=== PATIENT | female | born 1955 | race African-American/Black ===

== ENCOUNTER 2018-06-29 06:54 | Emergency (ER) | payer MEDICARE, OTHER ==
[~2018-06-29] VITALS: Ht 170.2 cm; Wt 94.3 kg
[~2018-06-29 06:54] MED LIST: CEPH-264 PO; CYCL-331 PO; DIAZ5TAB4 PO; DULO30CA2 PO; DULO60CA6 PO; FLUT12AE IH; MELO15TA23 PO; OXYC10TA PO; SIMV40TA3 PO; TRAZ-86 PO
[2018-06-29 07:28] LABS: BASO # 0.1 x10^3/uL (0.0-0.2); BASO % 2 % (0-3); EOS # 0.1 x10^3/uL (0.0-0.7); EOS % 2 % (0-3); HEMATOCRIT 39.5 % (36.0-47.0); LYMPH # 2.7 x10^3/uL (1.0-4.8); LYMPH % 41 % (24-48); MEAN CORPUSCULAR HEMOGLOBIN 31 pg (25-35); MEAN CORPUSCULAR HGB CONC 33 g/dL (31-37); MEAN CORPUSCULAR VOLUME 94 fL (79-100); MONO # 0.6 x10^3/uL (0.0-1.1); MONO % 10 % (0-9); NEUT % 46 % (31-73); PLATELET COUNT 356 x10^3/uL (140-400); RED BLOOD COUNT 4.22 x10^6/uL (3.50-5.40); RED CELL DISTRIBUTION WIDTH 13.7 % (11.5-14.5); WHITE BLOOD COUNT 6.5 x10^3/uL (4.0-11.0)
[2018-06-29] MEDS ORDERED: LORazepam 2 MG/ML VIAL IV ONE (07:45)
[2018-06-29 07:59] VITALS: BP 140/85
--- NOTE | 2018-06-29 08:10 | RAD ---
CT HEAD INDICATION: Altered mental status, HEADACHE COMPARISON: 11/14/2015 Exposure: One or more of the following individualized dose reduction techniques were utilized for this examination: 1. Automated exposure control 2. Adjustment of the mA and/or kV according to patient size 3. Use of iterative reconstruction technique TECHNIQUE: 5 mm contiguous axial images were obtained from the skull base to the vertex in both bone and soft tissue algorithm. FINDINGS: No abnormal attenuation within the brain parenchyma. No evidence of acute intracranial hemorrhage. No extra-axial fluid collections. No mass effect or midline shift. Ventricular size is appropriate. Basal cisterns are patent. No fractures identified.Heránndez-white differentiation is preserved.Globes and orbits are within normal limits. Paranasal sinuses and mastoid air cells are clear. IMPRESSION: No acute intracranial findings. Electronically signed by: Nolan Sky MD (06/29/2018 8:06 AM) [place] [id number]
[2018-06-29 08:21] LABS: ALBUMIN 3.5 g/dL (3.4-5.0); CALCIUM 8.5 mg/dL (8.5-10.1); CREATININE 0.8 mg/dL (0.6-1.0); GFR 87.9; MAGNESIUM 2.5 mg/dL (1.8-2.4); TOTAL BILIRUBIN 0.3 mg/dL (0.2-1.0); TOTAL PROTEIN 7.1 g/dL (6.4-8.2)
--- NOTE | 2018-06-29 08:27 | RAD ---
PORTABLE CHEST 1V Clinical indications: Altered mental status COMPARISON: November 14, 2015. Findings: Chronic scarring of the right lung base is seen. No acute lung infiltrate or pleural effusion or pulmonary edema or lung mass or pneumothorax is seen. The heart size, pulmonary vasculature, mediastinum and both aaron are unremarkable. Impression: No acute radiographic abnormality is seen. Electronically signed by: Sanjeev Fox MD (06/29/2018 8:23 AM) [facility]
[2018-06-29 09:27] LABS: BARBITURATES NEG (NEG); BENZODIAZEPINES POS (NEG); CANNABINOIDS NEG (NEG); COCAINE NEG (NEG); METHADONE NEG (NEG); OPIATES NEG (NEG); PHENCYCLIDINE NEG (NEG)
[2018-06-29 09:28] LABS: AMPHETAMINE/METHAMPHETAMINE NEG (NEG)
[2018-06-29 09:41] LABS: BILIRUBIN,URINE NEG (NEG); CLARITY,URINE CLEAR; COLOR,URINE YELLOW; GLUCOSE,URINE NEG (NEG); NITRITE,URINE NEG (NEG); UROBILINOGEN,URINE 0.2 mg/dL (0.2 mg/dL)
[2018-06-29 09:42] LABS: BACTERIA,URINE 0 /HPF (0-FEW); RBC,URINE 0 /HPF (0-2); SQUAMOUS EPITHELIAL CELL,UR OCC /LPF; WBC,URINE OCC /HPF (0-4)
[2018-06-29] MEDS ORDERED: KETOROLAC 30 MG/ML VIAL. IV ONE (09:45)
[2018-06-29] MEDS ORDERED: NAPR-683 PO (10:00)
--- NOTE | 2018-06-29 10:01 | PHYS DOC ---
Past History Past Medical History: Anxiety, Asthma, Depression, Other Past Surgical History: Cervical Fusion, Hip Replacement, Hysterectomy Smoking: Non-smoker Alcohol Use: None Drug Use: None Adult General Chief Complaint Chief Complaint: WEAKNESS/GENERALIZED HPI HPI Patient is a 63 year old female with history of sleep apnea on CPAP and sleep paralysis brought in by her family member because of 3 episodes of sleep paralysis this morning since 4 AM and generalized weakness and headache after episode of sleep paralysis. Patient states he has her eyes open but unable to talk or moves or doing anything during episodes of sleep paralysis. Patient denies chest pain, shortness of breath, nausea and vomiting, focal neuro deficit , blurred vision, missing her medication, using drugs or alcohol. Patient and her family are poor historian. Review of Systems Review of Systems Constitutional: Denies fever or chills [] Eyes: Denies change in visual acuity, redness, or eye pain [] HENT: Denies nasal congestion or sore throat [] Respiratory: Denies cough or shortness of breath [] Cardiovascular: No additional information not addressed in HPI [] GI: Denies abdominal pain, nausea, vomiting, bloody stools or diarrhea [] : Denies dysuria or hematuria [] Musculoskeletal: Denies back pain or joint pain [] Integument: Denies rash or skin lesions [] Neurologic: Reports headache, denies focal weakness or sensory changes [] Endocrine: Denies polyuria or polydipsia [] All other systems were reviewed and found to be within normal limits, except as documented in this note. Current Medications Current Medications Current Medications Medications (Trade) Dose Ordered Sig/Ryley Start Time Stop Time Status Last Admin Dose Admin Ketorolac Tromethamine (Toradol 30mg Vial) 30 mg 1X ONCE 06/29/18 09:45 06/29/18 09:46 DC Lorazepam (Ativan) 1 mg 1X ONCE 06/29/18 07:45 06/29/18 07:47 DC 06/29/18 07:34 1 MG Allergies Allergies Allergies Coded Allergies Type Severity Reaction Last Updated Verified No Known Drug Allergies 11/22/13 No Physical Exam Physical Exam Constitutional: Well nourished, mild distress, non-toxic appearance. [] HENT: Normocephalic, atraumatic, bilateral external ears normal, oropharynx moist, no oral exudates, nose normal. [] Eyes: PERRLA, EOMI, conjunctiva normal, no discharge. [] Neck: Normal range of motion, no tenderness, supple, no stridor. [] Cardiovascular:Heart rate regular rhythm, no murmur [] Lungs & Thorax: Bilateral breath sounds clear to auscultation [] Abdomen: Bowel sounds normal, soft, no tenderness, no masses, no pulsatile masses. [] Skin: Warm, dry, no erythema, no rash. [] Back: No tenderness, no CVA tenderness. [] Extremities: No tenderness, no cyanosis, no clubbing, ROM intact, no edema. [] Neurologic: Alert and oriented X 3, normal motor function, normal sensory function, no focal deficits noted. [] Psychologic: Affect anxious, judgement normal, mood normal. [] Current Patient Data Vital Signs Vital Signs Date Time Temp Pulse Resp B/P (MAP) Pulse Ox O2 Delivery O2 Flow Rate FiO2 06/29/18 07:59 60 16 140/85 (103) 99 Room Air 06/29/18 06:56 97.7 Lab Results Laboratory Tests Test 06/29/18 07:05 06/29/18 07:40 06/29/18 08:38 White Blood Count 6.5 x10^3/uL (4.0-11.0) Red Blood Count 4.22 x10^6/uL (3.50-5.40) Hemoglobin 13.0 g/dL (12.0-15.5) Hematocrit 39.5 % (36.0-47.0) Mean Corpuscular Volume 94 fL (79-100) Mean Corpuscular Hemoglobin 31 pg (25-35) Mean Corpuscular Hemoglobin Concent 33 g/dL (31-37) Red Cell Distribution Width 13.7 % (11.5-14.5) Platelet Count 356 x10^3/uL (140-400) Neutrophils (%) (Auto) 46 % (31-73) Lymphocytes (%) (Auto) 41 % (24-48) Monocytes (%) (Auto) 10 % (0-9) H Eosinophils (%) (Auto) 2 % (0-3) Basophils (%) (Auto) 2 % (0-3) Neutrophils # (Auto) 3.0 x10^3uL (1.8-7.7) Lymphocytes # (Auto) 2.7 x10^3/uL (1.0-4.8) Monocytes # (Auto) 0.6 x10^3/uL (0.0-1.1) Eosinophils # (Auto) 0.1 x10^3/uL (0.0-0.7) Basophils # (Auto) 0.1 x10^3/uL (0.0-0.2) Troponin I Quantitative < 0.017 ng/mL (0-0.055) Prothrombin Time 9.4 SEC (9.4-11.4) Prothrombin Time INR 0.9 (0.9-1.1) Sodium Level 143 mmol/L (136-145) Potassium Level 4.0 mmol/L (3.5-5.1) Chloride Level 106 mmol/L (98-107) Carbon Dioxide Level 28 mmol/L (21-32) Anion Gap 9 (6-14) Blood Urea Nitrogen 8 mg/dL (7-20) Creatinine 0.8 mg/dL (0.6-1.0) Estimated GFR (Cockcroft-Gault) 87.9 BUN/Creatinine Ratio 10 (6-20) Glucose Level 109 mg/dL (70-99) H Lactic Acid Level 1.1 mmol/L (0.4-2.0) Calcium Level 8.5 mg/dL (8.5-10.1) Magnesium Level 2.5 mg/dL (1.8-2.4) H Total Bilirubin 0.3 mg/dL (0.2-1.0) Aspartate Amino Transferase (AST) 13 U/L (15-37) L Alanine Aminotransferase (ALT) 24 U/L (14-59) Alkaline Phosphatase 95 U/L (46-116) Creatine Kinase 70 U/L (26-192) CK-Bte-A-Type Natriuretic Peptide 33 pg/mL (0-124) Total Protein 7.1 g/dL (6.4-8.2) Albumin 3.5 g/dL (3.4-5.0) Albumin/Globulin Ratio 1.0 (1.0-1.7) Urine Collection Type Unknown Urine Color Yellow Urine Clarity Clear Urine pH 7.5 Urine Specific [place] 1.015 Urine Protein Neg (NEG-TRACE) Urine Glucose (UA) Neg mg/dL (NEG) Urine Ketones (Stick) Neg mg/dL (NEG) Urine Blood Neg (NEG) Urine Nitrite Neg (NEG) Urine Bilirubin Neg (NEG) Urine Urobilinogen Dipstick 0.2 mg/dL (0.2 mg/dL) Urine Leukocyte Esterase Small (NEG) Urine RBC 0 /HPF (0-2) Urine WBC Occ /HPF (0-4) Urine Squamous Epithelial Cells Occ /LPF Urine Bacteria 0 /HPF (0-FEW) Urine Opiates Screen Neg (NEG) Urine Methadone Screen Neg (NEG) Urine Barbiturates Neg (NEG) Urine Phencyclidine Screen Neg (NEG) Urine Amphetamine/Methamphetamine Neg (NEG) Urine Benzodiazepines Screen Pos (NEG) Urine Cocaine Screen Neg (NEG) Urine Cannabinoids Screen Neg (NEG) Urine Ethyl Alcohol Neg (NEG) EKG EKG KG interpreted by me. EKG at 0 726 showed normal sinus rhythm at rate of 67, normal intervals and axis, no acute ST and T-wave abnormalities. Radiology/Procedures Radiology/Procedures [][address] [address] IMAGING REPORT Signed PATIENT: SUSAN MCGOVERN ACCOUNT: [id number] : 1955 LOCATION: ER AGE: 63 SEX: F EXAM STATUS: REG ER ORD. PHYSICIAN: APRIL LEHMAN MD REASON: ALOC PROCEDURE: PORTABLE CHEST 1V PORTABLE CHEST 1V Clinical indications: Altered mental status COMPARISON: November 14, 2015. Findings: Chronic scarring of the right lung base is seen. No acute lung infiltrate or pleural effusion or pulmonary edema or lung mass or pneumothorax is seen. The heart size, pulmonary vasculature, mediastinum and both aaron are unremarkable. Impression: No acute radiographic abnormality is seen. Electronically signed by: Otilia Fox MD (06/29/2018 8:23 AM) [facility] DICTATED AND SIGNED BY: OTILIA FOX MD DATE: 06/29/18820 CC: APRIL LEHMAN MD; ELVIN SAAB ~ [address] [address] IMAGING REPORT Signed PATIENT: SUSAN MCGOVERN ACCOUNT: [id number] : 1955 LOCATION: ER AGE: 63 SEX: F EXAM STATUS: REG ER ORD. PHYSICIAN: APRIL LEHMAN MD REASON: ALOC PROCEDURE: CT HEAD WO CONTRAST CT HEAD INDICATION: Altered mental status, HEADACHE COMPARISON: 11/14/2015 Exposure: One or more of the following individualized dose reduction techniques were utilized for this examination: 1. Automated exposure control 2. Adjustment of the mA and/or kV according to patient size 3. Use of iterative reconstruction technique TECHNIQUE: 5 mm contiguous axial images were obtained from the skull base to the vertex in both bone and soft tissue algorithm. FINDINGS: No abnormal attenuation within the brain parenchyma. No evidence of acute intracranial hemorrhage. No extra-axial fluid collections. No mass effect or midline shift. Ventricular size is appropriate. Basal cisterns are patent. No fractures identified.Hernández-white differentiation is preserved.Globes and orbits are within normal limits. Paranasal sinuses and mastoid air cells are clear. IMPRESSION: No acute intracranial findings. Electronically signed by: Nolan Sky MD (06/29/2018 8:06 AM) [place] [id number] DICTATED AND SIGNED BY: NOLAN SKY MD DATE: 06/29/18801 CC: APRIL LEHMAN MD; ELVIN SAAB ~ Course & Med Decision Making Course & Med Decision Making Pertinent Labs and Imaging studies reviewed. (See chart for details) Evaluation of patient in ER showed 63-year-old poor historian female patient brought in by family member because of headache and generalized weakness after 3 episodes of sleep paralysis with unable to talk and moving her extremity. Patient had this problem for a long time and usually gets headache and weakness after episodes. Patient had unremarkable physical exam except for mild anxiety . Labs and EKG and chest x-ray and CT of head was unremarkable. Patient felt better after treatment with Ativan and ambulated without problem and felt comfortable to go home. Dragon Disclaimer Dragon Disclaimer This electronic medical record was generated, in whole or in part, using a voice recognition dictation system. Departure Departure: Impression: Primary Impression: Headache Additional Impressions: Sleep paralysis Generalized weakness Anxiety about blushing Hypermagnesemia Disposition: HOME, SELF-CARE (at 0957) Condition: IMPROVED Referrals: ELVIN SAAB (PCP) Patient Instructions: General Headache Without Cause, [id number], Sleep Apnea Additional Instructions: Drink plenty of liquids Follow-up with your primary care physician in 3-5 days Return to ER if not getting better Continue home medication Scripts Naproxen (NAPROSYN) 500 Mg Tablet 500 MG PO BID for pain, #14 TAB Prov: APRIL LEHMAN MD 06/29/18 Problem Qualifiers APRIL LEHMAN MD Jun 29, 2018 10:01
--- NOTE | 2018-06-29 10:55 | EKG ---
[address] [address] Test Date: 2018-06-29 Test Time: 07:26:08 Pat Name: SUSAN MCGOVERN Department: Room: Gender: F [employer] Profit Job Titles: : 1955 Requested By: APRIL LEHMAN Order Number: [id number] Reading MD: Ritesh Prince Measurements Intervals [place] Rate: 67 P: 49 RI: 182 QRS: 16 QRSD: 70 T: 21 QT: 408 QTc: 434 Interpretive Statements SINUS RHYTHM Electronically Signed On 07-05-2018 10:04:06 [employer]PLICATIONS ANALYST by Ritesh Prince
== END 2018-06-29 10:07 | disposition home or self-care (01) ==
LOC: ER 06:54
DX: G47.53 Recurrent isolated sleep paralysis (principal); R51 Headache; R53.1 Weakness; E83.41 Hypermagnesemia; F41.8 Other specified anxiety disorders; F32.9 Major depressive disorder, single episode, unspecified; J45.909 Unspecified asthma, uncomplicated; R41.82 Altered mental status, unspecified
CPT/HCPCS: 36415; 70450; 71045; 80053; 80307; 81001; 82550; 83605; 83735; 83880; 84484; 85025; 85610; 87086; 93005; 96374; 99284; J2060

== ENCOUNTER → 2018-10-26 | Outpatient (CLI) | payer MEDICARE, OTHER ==
[~2018-10-26] MED LIST changes: +NAPR-683 PO
--- NOTE | 2018-10-26 14:11 | RAD ---
Examination: HIP RIGHT 2V WITH PELVIS History: RIGHT HIP PAIN AND PELVIC PAIN Comparison/Correlation: None Findings: Frontal view pelvis, frontal view of the right hip, and frog-leg lateral view right hip were obtained. Left hip joint prosthesis is mostly visualized except at the distal femoral stem region. Subchondral sclerosis of the right femoral head is present. No fracture or bony destruction. Soft tissues are unremarkable. Right hip joint space is unremarkable. Degenerative changes of the sacroiliac joints is mild. Impression: No acute process. Subchondral sclerosis of the right femoral head. Findings raise question of previous episodes of avascular necrosis. Right femoral head contour and right hip joint space are within normal limits. Electronically signed by: Maykel Rubio MD (10/26/2018 2:08 PM) [facility]
--- NOTE | 2018-10-26 14:42 | RAD ---
3 view study of both shoulders Clinical indications: Bilateral shoulder pain Left shoulder: No acute fracture or dislocation or lytic process or AC joint separation is seen. There is mild degenerative spurring without joint space narrowing of the glenohumeral joint. There is mild spurring of the left AC joint. Right shoulder: No acute fracture or dislocation or lytic process or AC joint separation is seen. There is moderate joint space narrowing and mild spurring of the right glenohumeral joint. There is mild degenerative spurring of the right AC joint. IMPRESSION: No acute fracture. There is mild primary degenerative osteoarthritis and spurring of the left AC joint and left glenohumeral joint. There is moderate primary degenerative osteoarthritis of the right glenoid humeral joint and mild primary degenerative osteoarthritis of the right AC joint. Electronically signed by: Sanjeev Fox MD (10/26/2018 2:40 PM) [facility]
== END | disposition home or self-care (01) ==
LOC: RAD 10:32
PROVIDERS: ATTEND Orthopaedic Surgery Sports Medicine
DX: M19.011 Primary osteoarthritis, right shoulder (principal); M19.012 Primary osteoarthritis, left shoulder; M25.551 Pain in right hip; M89.8X8 Other specified disorders of bone, other site; Z96.642 Presence of left artificial hip joint
CPT/HCPCS: 73030; 73502

== ENCOUNTER 2019-12-04 11:04 | Observation (INO) | payer MEDICARE, OTHER ==
[~2019-12-04] VITALS: Ht 170.2 cm; Wt 84.1 kg
[~2019-12-04 11:04] MED LIST changes: +SIMV40TA18 PO; -SIMV40TA3 PO; +TRAZ-125 PO; -TRAZ-86 PO
[2019-12-04] MEDS ORDERED: IV NORMAL SALINE 1,000ML 1,000 ML IV ONE (11:30)
[2019-12-04 11:42] LABS: BASO # 0.1 x10^3/uL (0.0-0.2); BASO % 1 % (0-3); EOS # 0.1 x10^3/uL (0.0-0.7); EOS % 1 % (0-3); HEMATOCRIT 44.3 % (36.0-47.0); HEMOGLOBIN 14.3 g/dL (12.0-15.5); LYMPH # 2.3 x10^3/uL (1.0-4.8); LYMPH % 47 % (24-48); MEAN CORPUSCULAR HEMOGLOBIN 32 pg (25-35); MEAN CORPUSCULAR HGB CONC 32 g/dL (31-37); MEAN CORPUSCULAR VOLUME 99 fL (79-100); MONO # 0.6 x10^3/uL (0.0-1.1); MONO % 12 % (0-9); NEUT # 1.9 x10^3uL (1.8-7.7); NEUT % 38 % (31-73); PLATELET COUNT 390 x10^3/uL (140-400); RED BLOOD COUNT 4.48 x10^6/uL (3.50-5.40); RED CELL DISTRIBUTION WIDTH 14.6 % (11.5-14.5); WHITE BLOOD COUNT 4.9 x10^3/uL (4.0-11.0)
[2019-12-04 11:45] LABS: CALCIUM 9.2 mg/dL (8.5-10.1); GFR 67.8
[2019-12-04 11:51] LABS: ACETAMIN 2.8 mcg/mL (10-30); ETHANOL < 10 mg/dL (0-10); SALIC < 2.8 mg/dL (2.8-20.0)
[2019-12-04 11:57] LABS: ALBUMIN 4.1 g/dL (3.4-5.0); MAGNESIUM 2.1 mg/dL (1.8-2.4); TOTAL BILIRUBIN 0.3 mg/dL (0.2-1.0); TOTAL PROTEIN 8.1 g/dL (6.4-8.2)
[2019-12-04] MEDS ORDERED: POTASSIUM CHLORIDE 10 MEQ TABLET.ER. PO ONE (12:45)
[2019-12-04 13:32] LABS: AMPHETAMINE/METHAMPHETAMINE NEG (NEG); BARBITURATES NEG (NEG); BENZODIAZEPINES NEG (NEG); CANNABINOIDS POS (NEG); COCAINE NEG (NEG); METHADONE NEG (NEG); OPIATES NEG (NEG); PHENCYCLIDINE NEG (NEG)
[2019-12-04 13:42] LABS: BILIRUBIN,URINE NEG (NEG); CLARITY,URINE CLOUDY; COLOR,URINE YELLOW; GLUCOSE,URINE NEG (NEG); NITRITE,URINE NEG (NEG); UROBILINOGEN,URINE 0.2 mg/dL (0.2 mg/dL)
[2019-12-04 13:43] LABS: BACTERIA,URINE MANY /HPF (0-FEW); SQUAMOUS EPITHELIAL CELL,UR OCC /LPF
--- NOTE | 2019-12-04 14:21 | PHYS DOC ---
Past History Past Medical History: Anxiety, Asthma, Bipolar, Depression Past Surgical History: Hip Replacement, Hysterectomy Additional Past Surgical Histo: ankle Smoking: Non-smoker Alcohol Use: None Drug Use: None Social History Narrative: MICAH cheng General Adult EDM: Chief Complaint: ANXIETY/PANIC ATTACK HPI: HPI: Patient is a 64-year-old female who presented to ER today complaint of severe anxiety attack, feeling very anxious and scared. Patient also complained of headache and having trouble breathing, feeling dizzy. Patient was screaming and crying, very tearful upon arrival. Patient denies suicidal ideation. Patient denies any chest pain, no abdominal pain. Patient states he has a history of anxiety, depression, bipolar disorder, patient is on Cymbalta, but she ran out of medication for several weeks. Patient lives on [facility] with her family. Review of Systems: Review of Systems: Constitutional: Denies fever or chills Eyes: Denies change in visual acuity HENT: Denies nasal congestion or sore throat Respiratory: Positive for trouble breathing Cardiovascular: Denies chest pain or edema GI: Denies abdominal pain, nausea, vomiting, bloody stools or diarrhea : Denies dysuria Musculoskeletal: Denies back pain or joint pain Integument: Denies rash Neurologic: Positive headache, dizziness Endocrine: Denies polyuria or polydipsia Lymphatic: Denies swollen glands Psychiatric: Positive for depression, anxiety, Heart Score: Risk Factors: Risk Factors: DM, Current or recent (<one month) smoker, HTN, HLP, family history of CAD, obesity. Risk Scores: Score 0 - 3: 2.5% MACE over next 6 weeks - Discharge Home Score 4 - 6: 20.3% MACE over next 6 weeks - Admit for Clinical Observation Score 7 - 10: 72.7% MACE over next 6 weeks - Early Invasive Strategies Current Medications: Current Meds: Current Medications Medications (Trade) Dose Ordered Sig/Ryley Start Time Stop Time Status Last Admin Dose Admin Duloxetine HCl (Cymbalta) 60 mg DAILY 12/05/19 09:00 12/04/19 14:15 60 MG Lorazepam (Ativan Inj) 2 mg 1X ONCE 12/04/19 11:45 12/04/19 11:46 DC 12/04/19 11:15 2 MG Potassium Chloride (Klor-Con) 40 meq 1X ONCE 12/04/19 12:45 12/04/19 12:54 DC 12/04/19 14:15 40 MEQ Sodium Chloride 1,000 ml @ 1,000 mls/hr 1X ONCE 12/04/19 11:30 12/04/19 12:29 DC 12/04/19 11:20 1,000 MLS/HR Allergies: Allergies: Allergies Coded Allergies Type Severity Reaction Last Updated Verified No Known Drug Allergies 11/22/13 No Physical Exam: PE: Constitutional: Well developed, well nourished, no acute distress, non-toxic appearance. [] HENT: Normocephalic, atraumatic, bilateral external ears normal, oropharynx moist, no oral exudates, nose normal. [] Eyes: PERRLA, EOMI, conjunctiva normal, no discharge. [] Neck: Normal range of motion, no tenderness, supple, no stridor. [] Cardiovascular:Heart rate regular rhythm, no murmur [] Lungs & Thorax: Bilateral breath sounds clear to auscultation [] Abdomen: Bowel sounds normal, soft, no tenderness, no masses, no pulsatile masses. [] Skin: Warm, dry, no erythema, no rash. [] Back: No tenderness, no CVA tenderness. [] Extremities: No tenderness, no cyanosis, no clubbing, ROM intact, no edema. [] Neurologic: Alert and oriented X 3, normal motor function, normal sensory function, no focal deficits noted. [] Psychologic: Affect normal, judgement normal, mood normal. [] Current Patient Data: Labs: Laboratory Tests Test 12/04/19 11:13 12/04/19 13:03 White Blood Count 4.9 x10^3/uL (4.0-11.0) Red Blood Count 4.48 x10^6/uL (3.50-5.40) Hemoglobin 14.3 g/dL (12.0-15.5) Hematocrit 44.3 % (36.0-47.0) Mean Corpuscular Volume 99 fL (79-100) Mean Corpuscular Hemoglobin 32 pg (25-35) Mean Corpuscular Hemoglobin Concent 32 g/dL (31-37) Red Cell Distribution Width 14.6 % (11.5-14.5) H Platelet Count 390 x10^3/uL (140-400) Neutrophils (%) (Auto) 38 % (31-73) Lymphocytes (%) (Auto) 47 % (24-48) Monocytes (%) (Auto) 12 % (0-9) H Eosinophils (%) (Auto) 1 % (0-3) Basophils (%) (Auto) 1 % (0-3) Neutrophils # (Auto) 1.9 x10^3uL (1.8-7.7) Lymphocytes # (Auto) 2.3 x10^3/uL (1.0-4.8) Monocytes # (Auto) 0.6 x10^3/uL (0.0-1.1) Eosinophils # (Auto) 0.1 x10^3/uL (0.0-0.7) Basophils # (Auto) 0.1 x10^3/uL (0.0-0.2) Sodium Level 142 mmol/L (136-145) Potassium Level 3.0 mmol/L (3.5-5.1) L Chloride Level 103 mmol/L (98-107) Carbon Dioxide Level 26 mmol/L (21-32) Anion Gap 13 (6-14) Blood Urea Nitrogen 4 mg/dL (7-20) L Creatinine 1.0 mg/dL (0.6-1.0) Estimated GFR (Cockcroft-Gault) 67.8 BUN/Creatinine Ratio 4 (6-20) L Glucose Level 137 mg/dL (70-99) H Calcium Level 9.2 mg/dL (8.5-10.1) Magnesium Level 2.1 mg/dL (1.8-2.4) Total Bilirubin 0.3 mg/dL (0.2-1.0) Aspartate Amino Transferase (AST) 14 U/L (15-37) L Alanine Aminotransferase (ALT) 19 U/L (14-59) Alkaline Phosphatase 93 U/L (46-116) Troponin I Quantitative < 0.017 ng/mL (0-0.055) UE-Yjo-X-Type Natriuretic Peptide 14 pg/mL (0-124) Total Protein 8.1 g/dL (6.4-8.2) Albumin 4.1 g/dL (3.4-5.0) Albumin/Globulin Ratio 1.0 (1.0-1.7) Salicylates Level < 2.8 mg/dL (2.8-20.0) L Salicylate Last Dose Date Unknown Salicylate Last Dose Time Unknown Acetaminophen Level 2.8 mcg/mL (10-30) L Acetaminophen Last Dose Date Unknown Acetaminophen Last Dose Time Unknown Ethyl Alcohol Level < 10 mg/dL (0-10) Urine Collection Type Unknown Urine Color Yellow Urine Clarity Cloudy Urine pH 6.0 Urine Specific [place] 1.015 Urine Protein Neg (NEG-TRACE) Urine Glucose (UA) Neg mg/dL (NEG) Urine Ketones (Stick) Neg mg/dL (NEG) Urine Blood Neg (NEG) Urine Nitrite Neg (NEG) Urine Bilirubin Neg (NEG) Urine Urobilinogen Dipstick 0.2 mg/dL (0.2 mg/dL) Urine Leukocyte Esterase Trace (NEG) Urine RBC 1-2 /HPF (0-2) Urine WBC 5-10 /HPF (0-4) Urine Squamous Epithelial Cells Occ /LPF Urine Bacteria Many /HPF (0-FEW) Urine Opiates Screen Neg (NEG) Urine Methadone Screen Neg (NEG) Urine Barbiturates Neg (NEG) Urine Phencyclidine Screen Neg (NEG) Urine Amphetamine/Methamphetamine Neg (NEG) Urine Benzodiazepines Screen Neg (NEG) Urine Cocaine Screen Neg (NEG) Urine Cannabinoids Screen Pos (NEG) Urine Ethyl Alcohol Neg (NEG) Vital Signs: Vital Signs Date Time Temp Pulse Resp B/P (MAP) Pulse Ox O2 Delivery O2 Flow Rate FiO2 12/04/19 11:04 128 60 126/86 (99) 100 Room Air EKG: EKG: [] Radiology/Procedures: Radiology/Procedures: [] Course & Med Decision Making: Course & Med Decision Making Pertinent Labs and Imaging studies reviewed. (See chart for details) Patient is a 64-year-old female who was brought here by family for evaluation of anxiety, patient has history of bipolar depression anxiety, she is out of her anxiety medication for several weeks. Patient is experiencing an anxiety attack, possibly drug withdrawal. Patient feels scared to go home. Patient will be admitted to the hospital for observation then. Dragon Disclaimer: Yuliaon Disclaimer: This electronic medical record was generated, in whole or in part, using a voice recognition dictation system. Departure Departure: Impression: Primary Impression: Anxiety Additional Impressions: Panic attack Drug withdrawal Disposition: ADMITTED INPATIENT Admitting Physician: Harjit Streeter Condition: IMPROVED Referrals: ELVIN SAAB (PCP) TAMELA FUENTES DO December 04, 2019 14:21
[2019-12-04] MEDS ORDERED: ALPRAZolam 0.25 MG TABLET PO ONE (14:45)
[2019-12-04 14:50] VITALS: BP 114/74
--- NOTE | 2019-12-04 15:09 | HP ---
ADMIT DATE: 12/04/2019 ATTENDING PHYSICIAN: Dr. Bautista. CHIEF COMPLAINT: Panic attack and crying spells. HISTORY OF PRESENT ILLNESS: This is a 64-year-old female with a known history of bipolar disorder and generalized anxiety. She has been out of her Cymbalta for 3 weeks now. She tried calling her primary care doctor's office and they were closed for the last month and a half because of the coronavirus pandemic. Today, she has got a lot of stress at home. She is crying, anxious, scared, vague symptoms of headache, trouble breathing, hyperventilating. The patient was screaming and crying in the ER, very tearful upon arrival. She denied any ideation of self-harm. She was given a dose of Cymbalta in the ED along with some other home meds. I was requested to admit her observation for management of her severe panic attack and anxiety. Her last dose of Cymbalta was 3 weeks ago. PAST MEDICAL HISTORY: Significant for bipolar disorder, generalized anxiety, anxiety, asthma. She has had a hysterectomy and a hip replacement. ALLERGIES: She has no known drug allergies. MEDICATIONS: Her current medicines include Cymbalta, lorazepam, potassium and sodium chloride. SOCIAL HISTORY: She is a nonsmoker, nondrinker. FAMILY HISTORY: Very complicated to get into, she could not give us much detail. She tells us that there are extenuating stress factors in her life personally as well as with family and friends. PHYSICAL EXAMINATION: GENERAL: When I saw her, this is a tearful female in no acute respiratory distress. INITIAL VITAL SIGNS: Showed a blood pressure of 126/86, pulse was 110 and regular, respiratory rate had been recorded 60 and it came down to about 32 by the time I saw her, oxygen saturation 100% on room air from hyperventilation. HEENT: Head is without trauma. Pupils are reactive. Sclerae nonicteric. Oropharynx clear. NECK: Supple, no bruits identified. LUNGS: Otherwise clear. CARDIOVASCULAR: Showed regular heart tones. No gallops, no murmurs. Peripheral pulses are palpable and full. ABDOMEN: Soft, scaphoid, nontender, no organomegaly. Bowel sounds are hypoactive. EXTREMITIES: No cyanosis. NEUROLOGIC: The patient is very tearful and anxious, but she was able to speak clearly. There are no focal deficits. SKIN: Warm and dry. PERTINENT LABORATORY STUDIES: Sodium 142, potassium 3.0 mEq per liter. Hemoglobin 14.3 g/dl, white count 4900. ASSESSMENT: 1. A 64-year-old female with acute panic attack. 2. She has been off of her antidepressant meds for a while. 3. History of bipolar disorder. 4. Generalized anxiety with many stressors. PLAN: 1. Observation status. 2. We should restart her Cymbalta. She got a dose in the ED already. 3. We will schedule Xanax. 4. hvac project manager to see. 5. The patient really needs psychiatric counseling. We will try to get that set up for her as an outpatient. RACHEL BAUTISTA MD DR: TOMAS/owen JOB#: [id number] / [id number]
[2019-12-04] MEDS ORDERED: NORT25CA PO (16:28)
[2019-12-04] MEDS ORDERED: ACET325T9 PO (16:28)
[2019-12-04 19:09] VITALS: BP 116/82
--- NOTE | 2019-12-04 19:20 | RAD ---
CT HEAD WO CONTRAST Clinical indications: Psychosis. Altered mental status. COMPARISON: June 29, 2018. Technique: Noncontrast axial cross sectional scanning of the head was performed. PQRS compliance Statement One or more of the following individualized dose reduction techniques were utilized for this study: 1. Automated exposure control 2. Adjustment of the mA and/or kV according to patient size 3. Use of iterative reconstruction technique Findings: No acute intracranial hemorrhage or midline shift or mass-effect or hydrocephalus or extra-axial fluid collection is seen. No focal hypodense area or sulci effacement is seen to indicate an acute infarct or edema radiographically. No skull fracture or pneumocephalus is seen. No opacification of the mastoid sinuses or the middle ear cavities or the paranasal sinuses is seen. The maxillary sinuses are not completely seen in this study. Impression: No acute intracranial abnormality is seen. Electronically signed by: Sanjeev Fox MD (12/04/2019 7:18 PM) [facility] [place]
[2019-12-04] MEDS: risperiDONE 0.5 MG TABLET. PO SCH (21:41)
[2019-12-04] MEDS: traZODone 50 MG TABLET. PO SCH (21:41)
[2019-12-04 22:00] VITALS: BP 120/80
--- NOTE | 2019-12-04 22:22 | PDOC ---
Exam Note: Mark Note: Please also refer to the separate dictated note~for this date of service dictated separately.~Patient seen individually. Discussed the patient with Nursing staff reviewed the chart.~Reviewed interim history and current functioning. Reviewed vital signs,~Labs/ Radiology~and current medications noted below. Continue current treatment with the changes noted in the dictated addendum note Assessment: Vital Signs/I&O: Vital Signs Date Time Temp Pulse Resp B/P (MAP) Pulse Ox O2 Delivery O2 Flow Rate FiO2 12/04/19 22:00 98.2 88 20 120/80 (93) 95 Room Air 12/04/19 13:39 2.0 Labs: Laboratory Tests Test 12/04/19 11:13 12/04/19 13:03 White Blood Count 4.9 x10^3/uL (4.0-11.0) Red Blood Count 4.48 x10^6/uL (3.50-5.40) Hemoglobin 14.3 g/dL (12.0-15.5) Hematocrit 44.3 % (36.0-47.0) Mean Corpuscular Volume 99 fL (79-100) Mean Corpuscular Hemoglobin 32 pg (25-35) Mean Corpuscular Hemoglobin Concent 32 g/dL (31-37) Red Cell Distribution Width 14.6 % (11.5-14.5) H Platelet Count 390 x10^3/uL (140-400) Neutrophils (%) (Auto) 38 % (31-73) Lymphocytes (%) (Auto) 47 % (24-48) Monocytes (%) (Auto) 12 % (0-9) H Eosinophils (%) (Auto) 1 % (0-3) Basophils (%) (Auto) 1 % (0-3) Neutrophils # (Auto) 1.9 x10^3uL (1.8-7.7) Lymphocytes # (Auto) 2.3 x10^3/uL (1.0-4.8) Monocytes # (Auto) 0.6 x10^3/uL (0.0-1.1) Eosinophils # (Auto) 0.1 x10^3/uL (0.0-0.7) Basophils # (Auto) 0.1 x10^3/uL (0.0-0.2) Sodium Level 142 mmol/L (136-145) Potassium Level 3.0 mmol/L (3.5-5.1) L Chloride Level 103 mmol/L (98-107) Carbon Dioxide Level 26 mmol/L (21-32) Anion Gap 13 (6-14) Blood Urea Nitrogen 4 mg/dL (7-20) L Creatinine 1.0 mg/dL (0.6-1.0) Estimated GFR (Cockcroft-Gault) 67.8 BUN/Creatinine Ratio 4 (6-20) L Glucose Level 137 mg/dL (70-99) H Calcium Level 9.2 mg/dL (8.5-10.1) Magnesium Level 2.1 mg/dL (1.8-2.4) Total Bilirubin 0.3 mg/dL (0.2-1.0) Aspartate Amino Transferase (AST) 14 U/L (15-37) L Alanine Aminotransferase (ALT) 19 U/L (14-59) Alkaline Phosphatase 93 U/L (46-116) Troponin I Quantitative < 0.017 ng/mL (0-0.055) LL-Knf-P-Type Natriuretic Peptide 14 pg/mL (0-124) Total Protein 8.1 g/dL (6.4-8.2) Albumin 4.1 g/dL (3.4-5.0) Albumin/Globulin Ratio 1.0 (1.0-1.7) Salicylates Level < 2.8 mg/dL (2.8-20.0) L Salicylate Last Dose Date Unknown Salicylate Last Dose Time Unknown Acetaminophen Level 2.8 mcg/mL (10-30) L Acetaminophen Last Dose Date Unknown Acetaminophen Last Dose Time Unknown Ethyl Alcohol Level < 10 mg/dL (0-10) Urine Collection Type Unknown Urine Color Yellow Urine Clarity Cloudy Urine pH 6.0 Urine Specific [place] 1.015 Urine Protein Neg (NEG-TRACE) Urine Glucose (UA) Neg mg/dL (NEG) Urine Ketones (Stick) Neg mg/dL (NEG) Urine Blood Neg (NEG) Urine Nitrite Neg (NEG) Urine Bilirubin Neg (NEG) Urine Urobilinogen Dipstick 0.2 mg/dL (0.2 mg/dL) Urine Leukocyte Esterase Trace (NEG) Urine RBC 1-2 /HPF (0-2) Urine WBC 5-10 /HPF (0-4) Urine Squamous Epithelial Cells Occ /LPF Urine Bacteria Many /HPF (0-FEW) Urine Opiates Screen Neg (NEG) Urine Methadone Screen Neg (NEG) Urine Barbiturates Neg (NEG) Urine Phencyclidine Screen Neg (NEG) Urine Amphetamine/Methamphetamine Neg (NEG) Urine Benzodiazepines Screen Neg (NEG) Urine Cocaine Screen Neg (NEG) Urine Cannabinoids Screen Pos (NEG) Urine Ethyl Alcohol Neg (NEG) Current Medications: Meds: Current Medications Medications (Trade) Dose Ordered Sig/Ryley Route PRN Reason Start Time Stop Time Status Last Admin Dose Admin Sodium Chloride 1,000 ml @ 1,000 mls/hr 1X ONCE IV 12/04/19 11:30 12/04/19 12:29 DC 12/04/19 11:20 Lorazepam (Ativan Inj) 2 mg 1X ONCE IVP 12/04/19 11:45 12/04/19 11:46 DC 12/04/19 11:15 Potassium Chloride (Klor-Con) 40 meq 1X ONCE PO 12/04/19 12:45 12/04/19 12:54 DC 12/04/19 14:15 Duloxetine HCl (Cymbalta) 60 mg DAILY PO 12/05/19 09:00 12/04/19 18:34 DC 12/04/19 14:15 Risperidone (RisperDAL) 0.5 mg HS PO 12/04/19 21:00 12/04/19 21:41 Trazodone HCl (Desyrel) 50 mg QHS PO 12/04/19 21:00 12/04/19 21:41 I have reviewed the current psychotropics carefully including drug interactions. Risk benefit ratio favors no change other than as noted in my dictated progress note. Diagnosis: Problems: (1) Anxiety (2) Hypertension (3) Urinary tract infection SEAN YAO MD December 04, 2019 22:22
[2019-12-05 05:15] VITALS: BP 112/70
[2019-12-05] MEDS: ALPRAZolam 0.25 MG TABLET PO PRN ×2 (08:12→17:59)
[2019-12-05] MEDS: DULoxetine HCL 30 MG CAPSULE.DR PO SCH (08:41)
[2019-12-05] MEDS ORDERED: DULoxetine HCL 60 MG CAPSULE.DR PO SCH (09:00)
[2019-12-05 10:42] VITALS: BP 102/67
[2019-12-05] MEDS ORDERED: ACETAMINOPHEN 325 MG TABLET PO ONE (14:59)
[2019-12-05] MEDS: ACETAMINOPHEN 325 MG TABLET PO PRN (15:00)
[2019-12-05 15:30] VITALS: BP 110/78
[2019-12-05 19:02] VITALS: BP 146/85
[2019-12-05] MEDS: traZODone 50 MG TABLET. PO SCH (21:04)
[2019-12-05] MEDS: risperiDONE 0.5 MG TABLET. PO SCH (21:04)
--- NOTE | 2019-12-05 21:20 | CONS ---
DATE OF CONSULTATION: 12/04/2019 PSYCHIATRIC CONSULTATION This is a late entry date of service 12/04/2019 covers elements not covered in my initial note. SUBJECTIVE: I met with the patient evening of 12/04/2019 in room 107, 1 [facility] for a psychiatric consult requested by Dr. Streeter on account of worsening paranoia, hallucinations, delusions, having fleeting suicidal ideation, worsening symptoms of depression, mood lability, being tearful. CHIEF COMPLAINT: "They are planning things against me. They are part of the conspiracy by the police. The engine starts, I can hear the noises. The windows are shaking. My tells me this really not happening. Everyone is trying to say is not happening, but it is. I can't sleep at night. They are trying to kill my family. I won't tell you if I am having suicidal thinking. No, I will not kill myself." HISTORY OF PRESENT ILLNESS: The patient is a 64-year-old -[place]yp[place] female seen in bed #107, 1 [facility], for a psychiatric consult requested by Dr. Streeter on account of the above and worsening panic attacks, crying spells. All of this is within the context of her past history of bipolar disorder. Reportedly, she was on 90 mg of Cymbalta and ran out of it about 3 weeks ago. She tried to call her primary care doctors, but they were closed because of the coronavirus pandemic. She is having crying spells, anxious, scared, having vague headaches, trouble breathing, hyperventilating. She was screaming and crying in the Emergency Room, very tearful upon arrival. She admits to having significant mood swings. PAST PSYCHIATRIC HISTORY: As above and a diagnosis of bipolar disorder, generalized anxiety disorder. PAST MEDICAL HISTORY: Positive for asthma. PAST SURGICAL HISTORY: She has a surgical history of hysterectomy, hip replacement. DRUG ALLERGIES: Negative. CURRENT PSYCHOTROPICS: She was on Cymbalta 90 mg a day until about 3 weeks back along with Ativan p.r.n. and also take potassium supplements. FAMILY HISTORY: She lives at home with her . 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 Her son lives in [place] and is her power of estate attorney. Urine drug screen was positive for marijuana, though she denies any substance abuse or alcohol abuse. REVIEW OF SYSTEMS: No CV, , pulmonary, eye system symptoms on review. She has vague somatic symptoms, anxious, paranoid, suspicious. MENTAL STATUS EXAMINATION: The patient is reasonably oriented. Speech coherent, rapid at times. Abstraction fair, computation somewhat impaired, language function intact. She is paranoid, suspicious, very verbal, forthcoming and has systematized delusions about her neighbors, about the police force trying to play tricks with her mind because they want to kill her family. There is little I could do to help change that thinking. No active suicidal ideation. Attention span is short. Language function intact. Intellect average. Insight poor. Judgment intact to standard questioning, but colored by the above delusions. IMPRESSION: Bipolar 1 disorder, mixed with psychotic features; anxiety disorder, unspecified; history of major depressive disorder. Rest as above. RECOMMENATION: From a psychiatric standpoint given her diagnosis of bipolar disorder, I would prefer not to restart the Cymbalta for now. We will start her on Risperdal 0.5 mg p.o. at bedtime, trazodone for insomnia 50 mg scheduled, may repeat x 1 p.r.n. for insomnia. She may need to be on Depakote as a mood stabilizer. UA has reflux to culture. These results are awaited and UTI should be treated if it returns positive. We will also have a CT head done given the extent of her psychotic symptoms quite a bit more than she has experienced in the past. We will consider transitioning her to the Psychiatry Inpatient service for stabilization depending on how she does. Dr. Streeter thank you for the opportunity to participate in your patient's care. We will follow with you. MAN John YAO MD DR: ENRICO/owen JOB#: [id number] / [id number]
--- NOTE | 2019-12-05 22:03 | PDOC ---
Exam Note: Mark Note: Please also refer to the separate dictated note~for this date of service dictated separately.~Patient seen individually. Discussed the patient with Nursing staff reviewed the chart.~Reviewed interim history and current functioning. Reviewed vital signs,~Labs/ Radiology~and current medications noted below. Continue current treatment with the changes noted in the dictated addendum note Assessment: Vital Signs/I&O: Vital Signs Date Time Temp Pulse Resp B/P (MAP) Pulse Ox O2 Delivery O2 Flow Rate FiO2 12/05/19 19:48 Room Air 12/05/19 19:02 98.2 89 20 146/85 (105) 98 12/04/19 13:39 2.0 I & O 12/04/19 12/04/19 12/05/19 15:00 23:00 07:00 Intake Total 1000 ml 640 ml 120 ml Balance 1000 ml 640 ml 120 ml Current Medications: Meds: Current Medications Medications (Trade) Dose Ordered Sig/Ryley Route PRN Reason Start Time Stop Time Status Last Admin Dose Admin Duloxetine HCl (Cymbalta) 60 mg DAILY PO 12/05/19 09:00 12/04/19 18:34 DC 12/04/19 14:15 Duloxetine HCl (Cymbalta) 90 mg DAILY PO 12/05/19 09:00 12/05/19 08:41 Acetaminophen (Tylenol) 650 mg PRN Q6HRS PRN PO PAIN / TEMP > 100.3'F 12/05/19 14:45 12/05/19 15:00 I have reviewed the current psychotropics carefully including drug interactions. Risk benefit ratio favors no change other than as noted in my dictated progress note. Diagnosis: Problems: (1) Anxiety (2) Hypertension (3) Urinary tract infection (4) Bipolar disorder, curr episode mixed, severe, with psychotic features (5) Anxiety disorder, unspecified (6) Major depressive disorder SEAN YAO MD December 05, 2019 22:03
--- NOTE | 2019-12-06 00:12 | PN ---
DATE: 12/05/2019 ATTENDING PHYSICIAN: Rachel Bautista MD SUBJECTIVE: The patient is calm. She is not prone to any more crying spells. She is eating breakfast. She was given the choice of going home or going up to the [facility]. After much consternation, she finally agreed to going up there. Dr. Cunningham has seen her and is willing to take her as an inpatient. She will have a COVID-19 swab done today with results, if negative they can take her first thing tomorrow. OBJECTIVE FINDINGS: VITAL SIGNS: Her blood pressure today is 112/70, pulse 83 and regular, temperature 97.6 degrees Fahrenheit. Her oxygen saturation is 98% on room air. HEENT: Head is without trauma. Pupils are reactive. Sclerae nonicteric. Oropharynx clear. NECK: Supple. No bruits. LUNGS: Clear with good breath sounds. CARDIOVASCULAR: Showed regular heart tones. No gallops. ABDOMEN: Soft. EXTREMITIES: Without edema. NEUROLOGIC: She is calm. Her speech is fluent. She is not agitated or psychotic. We had a fairly normal conversation. ASSESSMENT: 1. A 64-year-old female with acute psychosis. 2. Underlying depression and anxiety. 3. Noncompliance of meds. She has been off of her medicines for the last 3 weeks. 4. Bipolar disorder with paranoia. PLAN: 1. She is agreeable to go to the [facility]. 2. COVID-19 coronavirus swab to be done today. 3. I would continue her Cymbalta here on the floor and Dr. Cunningham can adjust her medications afterwards. 4. The Xanax has helped. We will continue that 3 times a day schedule. 5. Diet as tolerated. RACHEL BAUTISTA MD DR: TOMAS/owen JOB#: [id number] / [id number]
--- NOTE | 2019-12-06 05:42 | PN ---
DATE: 12/05/2019 PSYCHIATRIC PROGRESS NOTE. This note covers the elements not covered in my initial note on 12/05/2019. SUBJECTIVE: The patient was seen on telehealth rounds. Discussed with RADHA Downey, reviewed the chart. Reportedly, the patient slept "much better" last night. She remains paranoid, convinced that her neighbors are plotting against her and her family, but has been calmer, less anxious and less obsessed about this during the day today. She is particularly appreciative of being able to sleep the previous night. I have discussed the patient with Malaika Shukla, talent development coordinator and received information from Lyric Treadwell RN, piano case and bench assembler on and we will accept the patient and transfer to the inpatient service Geriatric Psychiatry Unit at [facility] once her COVID-19 screen is negative. During the individual visit, the patient was very thankful for being able to sleep better last night. She was seen on telehealth visit. REVIEW OF SYSTEMS: No CV, , pulmonary, eye system symptoms on review. MENTAL STATUS EXAM: Reasonably oriented. Speech is coherent, less pressured. Abstraction fair, computation impaired, language function intact. Mood and affect still labile. No active suicidal ideation. LABORATORY DATA: Reviewed. CT head result is awaited. IMPRESSION: Bipolar disorder, mixed with psychotic features; psychotic disorder, unspecified. Rest unchanged. PLAN: Continue trazodone and Risperdal at current dosage. Await results of CT head. Treat the UTI if positive. Transition to the Geriatric Psychiatry Unit when this can be arranged. SEAN YAO MD DR: ENRICO/owen JOB#: [id number] / [id number]
[2019-12-06 06:21] VITALS: BP 124/80
[2019-12-06] MEDS: ALPRAZolam 0.25 MG TABLET PO PRN ×3 (06:31→22:14)
[2019-12-06] MEDS: ACETAMINOPHEN 325 MG TABLET PO PRN ×2 (06:36→20:00)
[2019-12-06 12:03] VITALS: BP 140/87
[2019-12-06] MEDS: DULoxetine HCL 30 MG CAPSULE.DR PO SCH (12:07)
[2019-12-06] MEDS ORDERED: POTASSIUM CHLORIDE 20 MEQ TABLET.ER. PO ONE (15:15)
[2019-12-06 15:16] VITALS: BP 137/79
--- NOTE | 2019-12-06 18:07 | PN ---
DATE: 12/06/2019 SUBJECTIVE: The patient is a 64-year-old -Fijian female patient who came with acute psychosis. She has obviously underlying bipolar disorder. She has not had her Cymbalta for almost 3 weeks as her primary care physician's office was closed for 1-1/2 months due to coronavirus pandemic and therefore, she was evaluated in the Emergency Room, was admitted, started on Cymbalta and we did consult Dr. Cunningham. She is now on Cymbalta together with trazodone, risperidone and alprazolam. Dr. Cunningham recommended admission to Ger[facility] Unit, but the patient and her son adamantly refused going there. Her urine culture, however, has grown more than 100,000 colony forming units per mL of Escherichia coli and I spoke with the patient about the finding and that we probably will start her on IV antibiotic today and hopefully gets at least 2 today and tomorrow and we will discharge her home to continue with the oral antibiotic to which she agreed. PHYSICAL EXAMINATION: GENERAL: When I saw her this afternoon, she looked well and was clearly in no apparent respiratory distress. No pallor, jaundice, cyanosis or thyromegaly. No jugular venous distention. No limb edema. VITAL SIGNS: Her heart rate was 91, blood pressure was 140/87, temperature was 97.7, respiratory rate 20, and oxygen saturation was 97%. HEAD, EYES, EARS, NOSE AND THROAT: Normocephalic, atraumatic. NECK: Supple. HEART: Showed normal first and second heart sounds. No gallop, rub or murmur. CHEST: Clear to auscultation. No crepitation or rhonchi. ABDOMEN: Distended, soft, nontender. NEUROLOGIC: She was awake, alert, responding appropriately. All cranial nerves intact. She moves extremities without difficulty. She continues obviously to be anxious and with crying spells. ASSESSMENT: 1. Bipolar disorder, mixed with psychotic features, psychotic disorders, for which she is now on Cymbalta, trazodone and Xanax. 2. Urinary tract infection for which she was started on ceftriaxone. 3. Hypokalemia, which I started her on potassium chloride. We will repeat her labs tomorrow and hopefully discharge her home tomorrow to continue on oral antibiotics for her urinary tract infection. JOB HORNE MD DR: Austin JOB#: [id number] / [id number]
[2019-12-06 19:16] VITALS: BP 121/75
[2019-12-06] MEDS: LACTOBACILLUS RHAMNOSUS GG 1 CAPSULE. PO SCH (19:59)
[2019-12-06] MEDS: POTASSIUM CHLORIDE 20 MEQ TABLET.ER. PO SCH (20:00)
[2019-12-06] MEDS: risperiDONE 0.5 MG TABLET. PO SCH (20:00)
[2019-12-06] MEDS: traZODone 50 MG TABLET. PO SCH (20:00)
--- NOTE | 2019-12-06 22:03 | PDOC ---
Exam Note: Mark Note: Please also refer to the separate dictated note~for this date of service dictated separately.~Patient seen individually. Discussed the patient with Nursing staff reviewed the chart.~Reviewed interim history and current functioning. Reviewed vital signs,~Labs/ Radiology~and current medications noted below. Continue current treatment with the changes noted in the dictated addendum note Assessment: Vital Signs/I&O: Vital Signs Date Time Temp Pulse Resp B/P (MAP) Pulse Ox O2 Delivery O2 Flow Rate FiO2 12/06/19 20:05 Room Air 12/06/19 19:16 97.6 89 18 121/75 (90) 96 12/04/19 13:39 2.0 I & O 0 12/05/19 12/05/19 12/06/19 15:00 23:00 07:00 Intake Total 400 ml Balance 400 ml Current Medications: Meds: Current Medications Medications (Trade) Dose Ordered Sig/Ryley Route PRN Reason Start Time Stop Time Status Last Admin Dose Admin Ceftriaxone Sodium 1 gm/ Sodium Chloride 50 ml @ 100 mls/hr Q24H IV 12/06/19 15:00 12/06/19 15:28 Lactobacillus Rhamnosus (Culturelle) 1 cap BID PO 12/06/19 21:00 12/06/19 19:59 Potassium Chloride (Klor-Con) 40 meq 1X ONCE PO 12/06/19 15:15 12/06/19 15:16 DC 12/06/19 15:33 Potassium Chloride (Klor-Con) 20 meq TID PO 12/06/19 21:00 12/06/19 20:00 I have reviewed the current psychotropics carefully including drug interactions. Risk benefit ratio favors no change other than as noted in my dictated progress note. Diagnosis: Problems: (1) Major depressive disorder (2) Anxiety disorder, unspecified (3) Bipolar disorder, curr episode mixed, severe, with psychotic features (4) Urinary tract infection SEAN YAO MD December 06, 2019 22:03
[2019-12-06 22:36] VITALS: BP 160/98
--- NOTE | 2019-12-06 23:07 | PN ---
DATE: 12/06/2019 PSYCHIATRIC PROGRESS NOTE This note covers elements not covered in my initial note, 12/06/2019. SUBJECTIVE: The patient was seen individually evening of 12/06/2019 and earlier in the day, discussed with nursing staff and Malaika Shukla, cable television access coordinator for [facility]. After agreeing to come to the Psychiatry Service yesterday, when Malaika met with the patient today, discussed the unit and length of stay, the patient declined. She does have a UTI and is being treated for this. She again slept better last night with trazodone and Risperdal and feels the psychotic symptoms are "60% better." She denies active suicidal ideation. REVIEW OF SYSTEMS: No CV, , pulmonary, eye system symptoms on review. MENTAL STATUS EXAM: Oriented reasonably. Speech coherent, a little pressured. Abstraction fair, computation impaired, language function intact. Mood and affect somewhat labile. No psychotic symptoms, suicidal or homicidal ideation. We discussed the patient's past psychiatric treatment. She states she has been treated at the [facility] with Bernarda, nurse practitioner and Edwardo, nurse practitioner and both of them have left there. She states she was on multiple psychotropics at that time. Again, she totally denies suicidal ideation. Intellect average. Insight improving. Mood and affect is improved, less paranoid. Attention span somewhat distractable. LABORATORY DATA: Reviewed. IMPRESSION: Bipolar disorder, mixed with psychotic features; urinary tract infection; anxiety disorder, unspecified. PLAN: Continue Risperdal and trazodone at current dosage. Once the patient leaves the hospital, she will need outpatient psychiatric followup and agrees to make arrangements for this. MAN John YAO MD DR: ENRICO/owen JOB#: [id number] / [id number]
[2019-12-07 05:52] VITALS: BP 131/84
[2019-12-07 06:14] LABS: HEMATOCRIT 36.5 % (36.0-47.0); HEMOGLOBIN 11.8 g/dL (12.0-15.5); RED BLOOD COUNT 3.7 x10^6/uL (3.50-5.40); RED CELL DISTRIBUTION WIDTH 15.2 % (11.5-14.5); WHITE BLOOD COUNT 3.5 x10^3/uL (4.0-11.0)
[2019-12-07 06:30] LABS: CALCIUM 8.4 mg/dL (8.5-10.1); CREATININE 0.7 mg/dL (0.6-1.0); GFR 102.3; POTASSIUM 3.6 mmol/L (3.5-5.1); TOTAL BILIRUBIN 0.2 mg/dL (0.2-1.0); TOTAL PROTEIN 6.1 g/dL (6.4-8.2)
[2019-12-07] MEDS: DULoxetine HCL 30 MG CAPSULE.DR PO SCH (07:38)
[2019-12-07] MEDS: LACTOBACILLUS RHAMNOSUS GG 1 CAPSULE. PO SCH (07:38)
[2019-12-07] MEDS: POTASSIUM CHLORIDE 20 MEQ TABLET.ER. PO SCH (07:39)
[2019-12-07] MEDS: ALPRAZolam 0.25 MG TABLET PO PRN (07:39)
[2019-12-07 10:27] VITALS: BP 126/84
[2019-12-07] MEDS: ACETAMINOPHEN 325 MG TABLET PO PRN (10:37)
[2019-12-07] MEDS ORDERED: RISP0.5T3 PO (12:20)
[2019-12-07] MEDS ORDERED: ALPR0.254 PO (12:22)
[2019-12-07] MEDS ORDERED: CEFD300C PO (12:31)
--- NOTE | 2019-12-07 13:24 | DS ---
DATE OF DISCHARGE: 12/07/2019 HOSPITAL COURSE: The patient is a 64-year-old -[place] female patient who was admitted with acute psychosis. She apparently has underlying bipolar disorder and apparently has not had her Cymbalta for almost 3 weeks as her primary care physician's office was closed for 1-1/2 months due to coronavirus pandemic. She was evaluated in the Emergency Room, was started on Cymbalta and we did consult Dr. Cunningham, who recommended admission to [facility]. The patient and her son adamantly refused going there. Her urine culture, however, has grown more than 100,000 colony forming units per mL of Escherichia coli that is sensitive to all cephalosporins. She was started back on her Cymbalta as well as risperidone, Xanax and I continued her trazodone and as she remained stable, a decision was made to discharge her home to continue on oral cefdinir 300 mg twice a day together with all her psychotropic medication. PHYSICAL EXAMINATION: GENERAL: When I saw her this afternoon, she looked well and was clearly in no apparent respiratory distress. Slightly pale, but no jaundice, cyanosis or thyromegaly. No jugular venous distention. No limb edema. VITAL SIGNS: Her heart rate was 88, blood pressure was 126/84, temperature was 98.4, respiratory rate 20, and oxygen saturation was 96%. HEAD, EYES, EARS, NOSE AND THROAT: Showed normocephalic, atraumatic. NECK: Supple. CARDIAC: Normal first and second heart sounds. No gallop, rub or murmur. CHEST: Clear to auscultation. No crepitation or rhonchi. ABDOMEN: Distended, soft, nontender. NEUROLOGIC: She was awake, alert, responding appropriately. All cranial nerves intact. She moves extremities without difficulty. She ambulates without assistance or assistive devices. Her intake over the last 24 hours was 400, no output was recorded. LABORATORY DATA: This morning showed a white cell count of 3500, hemoglobin 12, hematocrit 36, MCV 99 and platelet count 295,000. Her chemistry showed a serum sodium 143, potassium 3.6, chloride 106, bicarbonate 31, anion gap of 6, BUN 6, creatinine 0.7, estimated GFR was 102 mL per minute. Her glucose 106, calcium was 8.4. Total bilirubin, AST, ALT, alkaline phosphatase were normal. Total protein was 6.1, albumin 3. Her toxic screen was negative. Urinalysis showed that she has 5-10 wbc's, trace of leukocyte esterase; however, her urine culture has grown more than 100,000 colony forming units per mL of Escherichia coli sensitive to all antibiotics, the patient was treated initially with IV ceftriaxone. DISCHARGE MEDICATIONS: She will be discharged home to continue on cefdinir 300 mg twice a day for 5 more days. She will be discharged also on alprazolam 0.25 mg every 2 hours, not to exceed 1.5 mg in 24 hours, risperidone 0.5 mg at bedtime, Tylenol 650 mg every 6-8 hours, cyclobenzaprine 10 mg twice a day, duloxetine for Cymbalta 90 mg daily, nortriptyline 25 mg at bedtime, simvastatin 40 mg at bedtime and trazodone 100 mg at bedtime. FINAL DISCHARGE DIAGNOSES: 1. Urinary tract infection with growth of Escherichia coli sensitive to cephalosporins. 2. Hypokalemia, resolved. Her potassium is 3.6. 3. Bipolar disorder, mixed, with psychotic features, which she was seen by Dr. Cunningham. She is now on Cymbalta and trazodone, Xanax and risperidone. JOB HORNE MD DR: MERY/owen JOB#: [id number] / [id number]
== END 2019-12-07 13:30 | disposition home or self-care (01) ==
LOC: ER 11:04 → 1 SOUTH 14:08 → ER 14:38
PROVIDERS: ADMIT Hospitalist; ATTEND Internal Medicine
DX: F41.0 Panic disorder [episodic paroxysmal anxiety] (principal); E87.6 Hypokalemia; I10 Essential (primary) hypertension; N39.0 Urinary tract infection, site not specified; J45.909 Unspecified asthma, uncomplicated; F31.64 Bipolar disorder, current episode mixed, severe, with psychotic features; F41.1 Generalized anxiety disorder; B96.20 Unspecified Escherichia coli [E. coli] as the cause of diseases classified elsewhere; F19.239 Other psychoactive substance dependence with withdrawal, unspecified; R42 Dizziness and giddiness; F23 Brief psychotic disorder; R45.851 Suicidal ideations; Z79.899 Other long term (current) drug therapy
CPT/HCPCS: 36415; 70450; 80053; 80307; 80329; 81001; 83735; 83880; 84484; 85025; 85027; 87086; 96365; 96366; 96375; 99284; G0378; G0480; J0696; J2060; 96361; G0379; J7030; U0003-CS